=== PATIENT | female | born 1935 | race Caucasian/White ===

== ENCOUNTER 2023-02-02 15:27 | Observation (INO) ==
[2023-02-02 17:01] LABS: BASOPHILS # (AUTO) 0.1 X10^3/uL (0.0-0.1); EOSINOPHILS # (AUTO) 0.3 x10^3/uL (0.0-0.2); EOSINOPHILS % (AUTO) 3.9 % (0.9-2.9); HEMATOCRIT 32.1 % (36.0-47.0); HEMOGLOBIN 10.7 g/dL (12.0-16.0); LYMPHOCYTES # (AUTO) 1.7 X10^3/uL (1.3-2.9); MEAN CORPUSCULAR HEMOGLOBIN 29.4 pg (27.0-34.0); MEAN CORPUSCULAR HGB CONC 33.5 g/dL (33.0-35.0); MEAN CORPUSCULAR VOLUME 87.7 fL (80.0-100.0); MEAN PLATELET VOLUME 8.8 fL (7.4-11.0); MONOCYTES # (AUTO) 0.9 x10^3/uL (0.3-0.8); MONOCYTES % (AUTO) 10.4 % (0.0-13.0); NEUTROPHILS # (AUTO) 5.8 x10^3/uL (2.2-4.8); NEUTROPHILS % (AUTO) 65.7 % (42.0-75.0); PLATELET COUNT 270 X10^3/uL (150.0-450.0); RED BLOOD COUNT 3.66 X10^6/uL (3.5-5.4); RED CELL DISTRIBUTION WIDTH 14.5 % (11.6-16.5); WHITE BLOOD COUNT 8.9 X10^3/uL (3.6-10.0)
[2023-02-02 17:08] LABS: INR 1.27 (0.8-1.3)
[2023-02-02 17:15] LABS: ALANINE AMINOTRANSFERASE 25 Units/L (12-78); ALBUMIN 3.8 g/dL (3.4-5.0); ALKALINE PHOSPHATASE 76 Units/L (46-116); ASPARTATE AMINO TRANSFERASE 32 Units/L (15-37); BLOOD UREA NITROGEN 24 mg/dL (7-18); CALCIUM 8.7 mg/dL (8.5-10.1); CARBON DIOXIDE 31.4 mmol/L (21-32); CHLORIDE 105 mmol/L (98-107); COR NA(FOR HYPERGLY) 143 mmol/L (136-145); CREATINE KINASE 150 Units/L (26-192); CREATININE 0.82 mg/dL (0.55-1.02); GLUCOSE 112 mg/dL (65-99); POTASSIUM 3.3 mmol/L (3.5-5.1); SODIUM 143 mmol/L (136-145); TOTAL PROTEIN 7.6 g/dL (6.4-8.2); eGFR NON BLACK RACES > 60 (>60)
[2023-02-02 17:16] VITALS: BMI 25.8
[2023-02-02] MEDS: NS 1,000 ML IV 1,000 ML IV SCH ×2 (17:19→18:46)
--- NOTE | 2023-02-02 17:37 | VAS ---
HISTORYReason For StudySTUDYLOWER EXT VENOUS, UNILATERALCOMPARISONNoneTECHNIQUEMultipl e viera scale and color flow Doppler images of the deep venous system were obtained of the left lower extremity.FINDINGSThe deep venous system of the left lower extremity was evaluated from the level of the common femoral vein through the popliteal vein. Normal color flow and augmentation can be observed. In addition, normal compression is seen throughout the deep venous system.IMPRESSIONNegative for DVT.Electronically signed by: AWAIS MCCALLUM (February 02, 2023 17:35:56)
[2023-02-02] MEDS ORDERED: NS 100 ML IV 100 ML ONE (17:45)
--- NOTE | 2023-02-02 19:12 | CT ---
HISTORYLT LEG EDEMA, R/O PESTUDYCTA CHESTCOMPARISONNone availableTECHNIQUECT of the chest was obtained with IV contrast. Reformatted images in the coronal sagittal planes and 3D MIP images also generated for review.FINDINGSContrast bolus timing is suboptimal for detection of PTE. The exam is also moderately degraded by respiratory motion artifact.Accounting for this, no central or large proximal segmental pulmonary arterial filling defects are identified. There is no significant pulmonary arterial dilatation or evidence of right heart strain. The heart is enlarged without significant pericardial effusion. There is coronary atherosclerotic disease. The thoracic aorta is calcified but grossly normal for technique. The major central airways are patent. There is no bulky mediastinal or hilar lymphadenopathy.There is a dense, slightly wedge-shaped peripheral opacity within the posterior inferior left lower lobe on axial images 95-108 series 5. There is a chronic appearing minimally displaced fracture of the adjacent posterior lateral left 9th rib (see image 106 series 5). There is also a chronic fracture of the posterior left 10th rib.Accounting for respiratory motion artifact, the remainder of the lungs are predominantly clear apart from very mild smooth interlobular septal thickening, which could reflect mild pulmonary edema. There is no pleural effusion or pneumothorax.Limited images through the upper abdomen show no gross acute abnormality.IMPRESSION1. Suboptimal as well as motion limited CT angiogram without evidence for central or large proximal segmental PTE.2. Dense, slightly wedge-shaped subpleural opacity within the posterior inferior left lower lobe. Findings could reflect chronic pleural parenchymal scarring given adjacent chronic appearing left-sided 9th rib fracture. However, pneumonia or pulmonary infarct is possible in the appropriate clinical setting and clinical correlation is necessary.3. Cardiomegaly with mild smooth interlobular septal thickening of the lungs, which could reflect mild pulmonary edema. Please correlate clinically for signs of CHF.Electronically signed by: NAKIA MAGDALENO (February 02, 2023 19:11:00)
[2023-02-02] MEDS: K-DUR TAB 20 MEQ PO PRN (20:47)
--- NOTE | 2023-02-02 23:04 | RAD ---
HISTORYCOUGH, SOBSTUDYCHEST, 1 VIEWCOMPARISONCTA chest from February 02, 2023TECHNIQUEChest radiographic imaging, AP portable projection, 1 imageFINDINGSNo cardiomegaly.No focal airspace disease.No pleural effusion.No pneumothorax.No acute osseous abnormality.IMPRESSIONNo imaging findings of acute cardiopulmonary disease.Electronically signed by: Blu Stephenson (February 02, 2023 23:03:42)
[2023-02-03] MEDS: NS 1,000 ML IV 1,000 ML IV SCH ×2 (06:01→19:32)
[2023-02-03 06:14] LABS: BASOPHILS # (AUTO) 0.1 X10^3/uL (0.0-0.1); BASOPHILS % (AUTO) 0.8 % (0.2-1.0); EOSINOPHILS # (AUTO) 0.2 x10^3/uL (0.0-0.2); EOSINOPHILS % (AUTO) 2.9 % (0.9-2.9); HEMATOCRIT 27.3 % (36.0-47.0); HEMOGLOBIN 9.3 g/dL (12.0-16.0); LYMPHOCYTES # (AUTO) 1.5 X10^3/uL (1.3-2.9); LYMPHOCYTES % (AUTO) 17.7 % (21.0-51.0); MEAN CORPUSCULAR HEMOGLOBIN 29.6 pg (27.0-34.0); MEAN CORPUSCULAR HGB CONC 34.2 g/dL (33.0-35.0); MEAN CORPUSCULAR VOLUME 86.6 fL (80.0-100.0); MEAN PLATELET VOLUME 8.5 fL (7.4-11.0); MONOCYTES # (AUTO) 0.9 x10^3/uL (0.3-0.8); MONOCYTES % (AUTO) 10.8 % (0.0-13.0); NEUTROPHILS # (AUTO) 5.8 x10^3/uL (2.2-4.8); NEUTROPHILS % (AUTO) 67.8 % (42.0-75.0); PLATELET COUNT 237 X10^3/uL (150.0-450.0); RED BLOOD COUNT 3.15 X10^6/uL (3.5-5.4); RED CELL DISTRIBUTION WIDTH 14.3 % (11.6-16.5); WHITE BLOOD COUNT 8.6 X10^3/uL (3.6-10.0)
[2023-02-03 06:45] LABS: ALANINE AMINOTRANSFERASE 22 Units/L (12-78); ALBUMIN 3.3 g/dL (3.4-5.0); ALKALINE PHOSPHATASE 49 Units/L (46-116); ASPARTATE AMINO TRANSFERASE 28 Units/L (15-37); BLOOD UREA NITROGEN 19 mg/dL (7-18); CALCIUM 8.2 mg/dL (8.5-10.1); CARBON DIOXIDE 27.8 mmol/L (21-32); CHLORIDE 106 mmol/L (98-107); COR CA(FOR HYPOALB) 8.8 mg/dL (8.5-10.1); CREATININE 0.67 mg/dL (0.55-1.02); GLUCOSE 95 mg/dL (65-99); POTASSIUM 3.9 mmol/L (3.5-5.1); SODIUM 141 mmol/L (136-145); TOTAL PROTEIN 6.5 g/dL (6.4-8.2); eGFR NON BLACK RACES > 60 (>60)
[2023-02-03] MEDS ORDERED: LASIX IVP ONE (09:41)
[2023-02-03] MEDS: TESSALON PERLES PO SCH ×3 (10:24→22:03)
[2023-02-03] MEDS: CIPRO IV 200 MG PREMIX* 200 MG/100 ML BAG IV SCH ×2 (10:24→20:23)
[2023-02-03] MEDS: K-DUR TAB 20 MEQ PO PRN (10:29)
--- NOTE | 2023-02-03 16:34 | DR.H&P ---
H&P - History & Physical for Day of: H&P Date: 02/02/23 - Chief Complaint Chief Complaint: LEFT LEG PAIN, SWELLING, AND BRUISING, SHORTNESS OF BREATH, COUGH - History of Present Illness History of Present Illness: IS A 87 YEAR OLD PATIENT OF [place]. SHE IS IN THE AREA VISITING FAMILY. SHE PRESENTED TO MY OFFICE FOR THE FIRST TIME TODAY. SHE COMPLAINED OF SWELLING, PAIN, AND DIFFUSE BRUISING OF THE LEFT LOWER EXTREMITY. PAIN INITIALLY STARTED ONE WEEK AGO. PATIENT REPORTS THAT SHE WAS SITTING IN THE BATHTUB WHEN SHE STARTED HAVING INTENSE CRAMPING OF THE LEFT LEG ON 01/25/23. SHE SAYS THAT SHE NOTICED BRUISING FROM HER HIP TO HER ANKLE THE NEXT DAY. AT THE TIME, SHE WAS TAKING COUMADIN FOR HX OF A-FIB. SHE CHECKED HER INR WITH A HOME MONITOR AND IT WAS 4.60. SHE CONTACTED THE [facility] IN [place], [place]. SHE WAS INSTRUCTED TO STOP TAKING THE COUMADIN UNTIL SHE WAS INSTRUCTED TO START BACK. SHE PRESENTED TO THE OFFICE TODAY AFTER HER SYMPTOMS OF PAIN, SWELLING, AND BRUISING PERSISTED. ADDITIONALLY, SHE COMPLAINED OF SHORTNESS OF BREATH AND COUGH. HER PMH INCLUDES: HTN, HYPOTHYROIDISM, DEPRESSION, HYPERLIPIDEMIA, AND ATRIAL FIBRILLATION. DECISION WAS MADE TO ADMIT PATIENT TO THE HOSPITAL FOR FURTHER EVALUTATION AND TREATMENT OF LEFT LEG EDEMA, LEFT LEG PAIN, LEFT LEG BRUISING, SHORTNESS OF BREATH, AND COUGH. ON ADMISSION, HER VITALS WERE 98.1-85-20-93%-184/96. LABS WERE OBTAINED. WBC 8.9, RBC 3.66, HGB 10.7, HCT 32.1, PLT COUNT 270, D-DIMER 1.11, INR 1.27, SODIUM 143, POTASSIUM 3.3, CHLORIDE 105, CARBON DIOXIDE 31.4, BUN 24, CREATININE 0.82, GLUCOSE 112, CALCIUM 8.7, AST 32, ALT 25, ALK PHOS 76, CREATINE KINASE 150, TOTAL PROTEIN 7.6, ALBUMIN 3.8, MAGNESIUM 2.0. WE OBTAINED A CHEST XRAY. IT REVEALED: No imaging findings of acute cardiopulmonary disease. LEFT LOWER EXTREMITY VENOUS DOPPLER WAS NEGATIVE FOR DVT. CHEST CTA WAS OBTAINED AND REVEALED: 1. Suboptimal as well as motion limited CT angiogram without evidence for central or large proximal segmental PTE. 2. Dense, slightly wedge-shaped subpleural opacity within the posterior inferior left lower lobe. Findings could reflect chronic pleural parenchymal scarring given adjacent chronic appearing left-sided 9th rib fracture. However, pneumonia or pulmonary infarct is possible in the appropriate clinical setting and clinical correlation is necessary. 3. Cardiomegaly with mild smooth interlobular septal thickening of the lungs, which could reflect mild pulmonary edema. Please correlate clinically for signs of CHF. SHE WAS STARTED ON NORMAL SALINE AT [facility], CIPRO 200MG IV Q12H, TESSALON PERLES 200MG PO TID, AND THE PO POTASSIUM PROTOCOL. WE WILL RESUME HER HOME MEDICATIONS OF NORVASC, CELEBREX, TRICOR, HCTZ, SYNTHROID, COZAAR, PRAVACHOL, AND ZOLOFT. WE WILL NOT RESUME HER COUMADIN AT THIS TIME. OTHERWISE, WE WILL FOLLOW-UP WITH AM LABS AND CONTINUE TO MONITOR. TIME SPENT ON CLINICAL ASSESSMENT, REVIEWING LABS AND IMAGING, DECISION MAKING, AND DOCUMENTATION GREATER THAN 75 MINUTES. - Past Medical History Past Medical History: Depression, Dyslipidemia, Hypertension, Hypothyroidism Additional Medical History: ATRIAL FIBRILLATION - Past Surgical History Surgical History: Other Additional Surgical History: BLADDER TAC - Social History Does patient currently use any type of tobacco product: No Have you used tobacco products in the last 12 months: No Type of Tobacco Use: None Does any household member use tobacco: No Alcohol Use: None Drug Use: None - Medications Home Medications: Home Medications Medication Instructions Recorded Confirmed Type amlodipine 5 mg tablet 1 tab PO BID 02/02/23 02/02/23 History celecoxib 200 mg capsule 1 cap PO QDAY 02/02/23 02/02/23 History fenofibrate nanocrystallized 145 1 tab PO QDAY 02/02/23 02/02/23 History mg tablet hydrochlorothiazide 25 mg tablet 1 tab PO QDAY 02/02/23 02/02/23 History levothyroxine 150 mcg tablet 1 tab PO QDAY 02/02/23 02/02/23 History losartan 100 mg tablet 1 tab PO QDAY 02/02/23 02/02/23 History pravastatin 40 mg tablet 1 tab PO QPM 02/02/23 02/02/23 History sertraline 100 mg tablet 1 tab PO QDAY 02/02/23 02/02/23 History warfarin 5 mg tablet tab PO 02/02/23 History - Review of Systems Constitutional: Weakness Eyes: No Symptoms Reported ENT: No Symptoms Reported Respiratory: See HPI, Cough, Shortness of Breath, SOB with Excertion Cardiovascular: No Symptoms Reported Gastrointestinal: No Symptoms Reported Genitourinary: No Symptoms Reported Musculoskeletal: Leg Pain (LEFT LEG) Skin: Bruising (LEFT LEG FROM HIP TO ANKLE ) Neurological: Weakness - Physical Exam Vital Signs: Temperature 98.7 F Pulse Rate [Right Radial] 76 Respiratory Rate 20 Blood Pressure [Right Arm] 157/70 O2 Sat by Pulse Oximetry 95 Oriented: Normal Eyes: Normal Ear: Normal Nose: Normal Throat: Normal Respiratory: Diminished Throughout Cardiovascular: Normal : Normal Auscultation: Bowel Sounds: Normal Palpation: Normal Tenderness: Normal Skin: Bruising (BRUISING OF THE LEFT LEG FROM HER HIP TO HER ANKLE ) Musculoskeletal: Left, Leg, Swelling (NON-PITTING ), Tender Psychiatric: Normal Mood Description: Calm Affect: Normal Speech Pattern: Clear - Assessment/Plan (1) Cellulitis of left lower extremity Status: Acute Plan: ADMIT, NORMAL SALINE AT KVO, CIPRO 200MG IV Q12H, TESSALON PERLES 200MG PO TID, AND THE PO POTASSIUM PROTOCOL. RESUME HOME MEDS WITH THE EXCEPTION OF COUMADIN (2) Ecchymoses, spontaneous Status: Acute Plan: HOLD COUMADIN, CONTINUE TO MONITOR (3) Left leg pain Status: Acute Plan: CONTINUE HOME MED OF CELEBREX (4) Left leg swelling Status: Acute Plan: LASIX 20MG IV X 1 DOSE (5) Shortness of breath Status: Acute (6) Cough Qualifiers: Cough type: acute Qualified Code(s): R05.1 - Acute cough Status: Acute Plan: TESSALON PERLES 200MG TID (7) Atrial fibrillation Qualifiers: Atrial fibrillation type: unspecified Qualified Code(s): I48.91 - Unspecified atrial fibrillation Status: Chronic Plan: HOLD COUMADIN FOR NOW, CONTINUE TO MONITOR (8) Hypertension Qualifiers: Hypertension type: primary hypertension Qualified Code(s): I10 - Essential (primary) hypertension Status: Chronic Plan: CONTINUE NORVASC, COZAAR, AND HCTZ (9) Hypothyroidism Qualifiers: Hypothyroidism type: acquired Qualified Code(s): E03.9 - Hypothyroidism, unspecified Status: Chronic Plan: CONTINUE SYNTHROID (10) Hyperlipidemia Qualifiers: Hyperlipidemia type: mixed hyperlipidemia Qualified Code(s): E78.2 - Mixed hyperlipidemia Status: Chronic Plan: CONTINUE PRAVACHOL AND TRICOR (11) Depression Qualifiers: Depression Type: major depressive disorder Major depression recurrence: recurrent Major depression episode severity: mild Status: Chronic Plan: CONTINUE ZOLOFT - Allergies Allergies/Adverse Reactions: Allergies Allergy/AdvReac Type Severity Reaction Status Date / Time No Known Allergies Allergy Verified 02/02/23 18:15
[2023-02-03] MEDS ORDERED: ZOLOFT ONE (16:38)
[2023-02-03] MEDS: ZOLOFT PO SCH (16:46)
[2023-02-03] MEDS: COZAAR PO SCH (16:46)
[2023-02-03] MEDS: SYNTHROID 150 mcg TAB PO SCH (16:46)
[2023-02-03] MEDS: TRICOR TAB 145 MG PO SCH (16:46)
[2023-02-03] MEDS: CELEBREX PO SCH (16:47)
[2023-02-03] MEDS: NORVASC TAB 5 MG PO SCH (20:22)
[2023-02-03] MEDS ORDERED: PRAVACHOL PO SCH (21:00)
[2023-02-04] MEDS: TESSALON PERLES PO SCH (05:08)
[2023-02-04 05:47] LABS: BASOPHILS # (AUTO) 0.1 X10^3/uL (0.0-0.1); BASOPHILS % (AUTO) 0.8 % (0.2-1.0); EOSINOPHILS # (AUTO) 0.3 x10^3/uL (0.0-0.2); EOSINOPHILS % (AUTO) 4.2 % (0.9-2.9); HEMATOCRIT 28.2 % (36.0-47.0); HEMOGLOBIN 9.7 g/dL (12.0-16.0); LYMPHOCYTES # (AUTO) 1.7 X10^3/uL (1.3-2.9); LYMPHOCYTES % (AUTO) 24.2 % (21.0-51.0); MEAN CORPUSCULAR HEMOGLOBIN 29.8 pg (27.0-34.0); MEAN CORPUSCULAR HGB CONC 34.5 g/dL (33.0-35.0); MEAN CORPUSCULAR VOLUME 86.5 fL (80.0-100.0); MEAN PLATELET VOLUME 8.6 fL (7.4-11.0); MONOCYTES # (AUTO) 0.8 x10^3/uL (0.3-0.8); MONOCYTES % (AUTO) 11.2 % (0.0-13.0); NEUTROPHILS # (AUTO) 4.2 x10^3/uL (2.2-4.8); NEUTROPHILS % (AUTO) 59.6 % (42.0-75.0); PLATELET COUNT 259 X10^3/uL (150.0-450.0); RED BLOOD COUNT 3.26 X10^6/uL (3.5-5.4); RED CELL DISTRIBUTION WIDTH 14.2 % (11.6-16.5); WHITE BLOOD COUNT 7.1 X10^3/uL (3.6-10.0)
[2023-02-04 06:09] LABS: ALANINE AMINOTRANSFERASE 22 Units/L (12-78); ALBUMIN 3.2 g/dL (3.4-5.0); ALKALINE PHOSPHATASE 43 Units/L (46-116); ASPARTATE AMINO TRANSFERASE 28 Units/L (15-37); BLOOD UREA NITROGEN 18 mg/dL (7-18); CALCIUM 8.4 mg/dL (8.5-10.1); CARBON DIOXIDE 29.5 mmol/L (21-32); CHLORIDE 105 mmol/L (98-107); CREATININE 0.72 mg/dL (0.55-1.02); GLUCOSE 93 mg/dL (65-99); POTASSIUM 3.8 mmol/L (3.5-5.1); SODIUM 143 mmol/L (136-145); TOTAL PROTEIN 6.5 g/dL (6.4-8.2); eGFR NON BLACK RACES > 60 (>60)
[2023-02-04] MEDS ORDERED: ZOLOFT ONE (08:02)
[2023-02-04] MEDS: CIPRO IV 200 MG PREMIX* 200 MG/100 ML BAG IV SCH (08:16)
[2023-02-04] MEDS: NS 1,000 ML IV 1,000 ML IV SCH (08:20)
[2023-02-04] MEDS: ZOLOFT PO SCH (08:20)
[2023-02-04] MEDS: SYNTHROID 150 mcg TAB PO SCH (08:21)
[2023-02-04] MEDS: CELEBREX PO SCH (08:21)
[2023-02-04] MEDS: NORVASC TAB 5 MG PO SCH (08:21)
[2023-02-04] MEDS: COZAAR PO SCH (08:21)
[2023-02-04] MEDS: TRICOR TAB 145 MG PO SCH (08:22)
[2023-02-04] MEDS ORDERED: HYDROCHLOROTHIAZIDE 25 MG TAB PO SCH (09:00)
[2023-02-04 11:50] VITALS: BP 150/70; PULSE 66; TEMP 98; O2SAT 92
== END 2023-02-04 12:55 | disposition home or self-care (01) ==
LOC: MED/SURG
PROVIDERS: ADMIT Internal Medicine; ATTEND Internal Medicine
DX: I10 Essential (primary) hypertension; R60.0 Localized edema; R23.3 Spontaneous ecchymoses; M79.605 Pain in left leg; L03.116 Cellulitis of left lower limb; E03.8 Other specified hypothyroidism; R06.02 Shortness of breath; F33.8 Other recurrent depressive disorders; E78.2 Mixed hyperlipidemia; R79.1 Abnormal coagulation profile; I48.91 Unspecified atrial fibrillation